=== PATIENT | male | born 1995 | race African-American/Black ===

== ENCOUNTER 2020-02-12 19:23 | Emergency (ER) | payer OTHER ==
[2020-02-12] MEDS ORDERED: diphenhydrAMINE 50MG/ML VIAL (J1200) As Ordered ONE (19:49)
[2020-02-12] MEDS ORDERED: diphenhydrAMINE 50MG/ML VIAL (J1200) ONE (19:49)
[2020-02-12] MEDS ORDERED: methylPREDNISolone 125MG 2ML VIAL ONE (19:49)
[2020-02-12] MEDS ORDERED: methylPREDNISolone 125MG 2ML VIAL As Ordered ONE (19:50)
[2020-02-21] MEDS ORDERED: METAL LOCK LOOP XX ONE (10:29)
== END 2020-02-12 21:15 | disposition home or self-care (01) ==
LOC: M ED 19:23
DX: T63.461A Toxic effect of venom of wasps, accidental (unintentional), initial encounter (principal); W57.XXXA Bitten or stung by nonvenomous insect and other nonvenomous arthropods, initial encounter; Z91.030 Bee allergy status
CPT/HCPCS: 96374; 96375; 99284; J1200; J2930